=== PATIENT | male | born 1955 | race Caucasian/White ===

== ENCOUNTER 2022-11-08 09:23 | Emergency (ER) | payer MEDICARE, BC, SELFPAY ==
[2022-11-08 09:27] VITALS: BP 199/95; PULSE 91; RESP 20; TEMP 36.6; O2SAT 99; BMI 28.2
[2022-11-08] MEDS: lisinopriL 20 MG TABLET PO (10:05)
[2022-11-08 10:13] VITALS: BP 189/94; PULSE 87; RESP 20; TEMP 36.6
--- NOTE | 2022-11-08 12:38 | ED.GENADULT ---
HPI - General Adult General Date Seen: 11/08/22 Chief complaint: High Blood Pressure Stated complaint: elevated blood pressure Time Seen by Provider: 11/08/22 09:38 Source: patient Mode of arrival: ambulatory Limitations: no limitations History of Present Illness HPI narrative: Patient is a 67-year-old male who presents with concerns of elevated blood pressure. He says he has a history of hypertension but about 6 months ago he was having problems with low blood pressures and passing out so his blood pressure medicines were discontinued. Yesterday he checked his blood pressure at home and it was over 200 systolic. He re checked it this morning and it was still high so he comes in wanting to restart blood pressure medicines. He denies any symptoms at all, no headache, chest pain, difficulty breathing, neurologic complaints. He notes a history of alcohol abuse, had been sober until last week when he had a 3 day binge. He says he is sober again, he has been through treatment at [facility] and has a sponsor there as well as goes to AA meetings. He declines the need for additional help along those lines. He believes he used to take lisinopril and Lasix for his blood pressure. He believes his previous dose of lisinopril was 20 mg. Related Data Home Medications Medication Instructions Recorded Confirmed atorvastatin 20 mg tablet 20 mg PO DAILY 11/08/22 11/08/22 duloxetine 30 mg capsule,delayed 30 mg PO DAILY 11/08/22 11/08/22 release Previous Rx's Medication Instructions Recorded lisinopril 20 mg tablet 20 mg PO DAILY #30 tabs 11/08/22 Allergies Allergy/AdvReac Type Severity Reaction Status Date / Time No Known Drug Allergies Allergy Verified 11/08/22 09:32 Review of Systems Status of ROS: Reports: 6 or more systems reviewed and unremarkable except as noted in History and below PFSH PFSH Social History Smoking Status: Former smoker Do you use any of these nicotine containing products: None Second hand tobacco smoke exposure: No How often do you have a drink containing alcohol: monthly or less AUDIT-C Alcohol total score: 1 Non-prescribed substance use: denies use Exam Narrative: Exam Narrative: Vital signs as noted above. In general, an alert, well-appearing patient. Head: Normocephalic, atraumatic. Eyes: Pupils are equal reactive. Extraocular movements are full. Conjunctivae are normal. ENT: Mucous membranes are moist. Throat is normal. Neck: Supple without lymphadenopathy. Heart: Regular rate and rhythm. No murmur or rub. Lungs: Clear bilaterally. No increased work of breathing, crackles or wheezes. Abdomen: Soft and nontender. No organomegaly. Extremities: Well perfused. No edema. No calf tenderness. Pulses intact. Neurologic: Patient is alert and oriented to person and place. Speech is fluent. Face is symmetric. Moves all extremities equally. Affect: Normal. Skin: Warm and dry. Well perfused. Const: Vital Signs, click to edit/add: Vital Signs - 24 hr 11/08/22 09:27 11/08/22 10:13 Temperature 97.9 F 97.9 F Pulse Rate [Pulse Oximeter] 91 87 Respiratory Rate 20 20 Blood Pressure [Ri ght Upper Arm] 199/95 H 189/94 H Pulse Oximetry 99 Documenting provider has reviewed patient's vital signs: yes Course Course Hospital Course: He was hopeful to get back on his blood pressure medicine as quickly as possible so I did give him a dose of lisinopril here. I am going to give him a prescription for lisinopril and start him on that, have him follow up with primary care, he sees Dr. Winchester, who will assess how he is responding to lisinopril. If needed, Lasix him be added back in as well. However, discussed with him that since he was having some difficulty with low blood pressures, I would like to see how he is doing with 1 medicine before restarting 2. Given that he is completely asymptomatic, I do not think additional workup is needed for his hypertension. Primary care follow-up in 1-2 weeks for re-evaluation. Vital Signs Vital signs: Initial Vital Signs Temperature 97.9 F 11/08/22 09:27 Temperature Source Temporal Artery Scan 11/08/22 09:27 Pulse Rate 91 11/08/22 09:27 Respiratory Rate 20 11/08/22 09:27 Blood Pressure 199/95 H 11/08/22 09:27 Blood Pressure Mean 129 11/08/22 09:27 Blood Pressure Position Sitting 11/08/22 09:27 Pulse Oximetry 99 11/08/22 09:27 Vital Signs Temperature 97.9 F 11/08/22 09:27 Pulse Rate 91 11/08/22 09:27 Respiratory Rate 20 11/08/22 09:27 Blood Pressure 199/95 H 11/08/22 09:27 Pulse Oximetry 99 11/08/22 09:27 Temperature 97.9 F 11/08/22 10:13 Pulse Rate 87 11/08/22 10:13 Respiratory Rate 20 11/08/22 10:13 Blood Pressure 189/94 H 11/08/22 10:13 Pulse Oximetry 99 11/08/22 09:27 Discharge Plan Discharge Clinical Impression: Hypertension Patient Disposition: Home, Self-Care Condition: Stable Instructions: Hypertension (ED) Additional Instructions: Lisinopril as prescribed. Follow up with Dr. Winchester in the next couple of weeks to see how your blood pressure is doing and at further medication as needed. If you have any severe symptoms in the interim such as chest pain, lightheadedness, syncope, shortness of breath, return to the emergency department Prescriptions: New lisinopril 20 mg tablet 20 mg PO DAILY Qty: 30 2RF No Action atorvastatin 20 mg tablet 20 mg PO DAILY duloxetine 30 mg capsule,delayed release(DR/EC) 30 mg PO DAILY Follow Up/Referrals: Gerardo Winchester MD [Primary Care Provider] - Stand Alone Forms: [employer] Info Instructions
== END 2022-11-08 10:15 | disposition home or self-care (01) ==
LOC: ED 10:04
PROVIDERS: Emergency Provider Emergency Medicine; PCP Surgery
DX: I10 Essential (primary) hypertension (principal)
CPT/HCPCS: 99283; A9270

== ENCOUNTER 2023-01-08 09:56 | Outpatient (CLI) | payer MEDICARE, BC, SELFPAY ==
--- NOTE | 2023-01-08 10:15 | CRLHL7_ITS ---
For Patients: As a result of the Century Cures Act, medical imaging exams and procedure reports are released immediately into your electronic medical record. You may view this report before your referring provider. If you have questions, please contact your health care provider. INDICATION: Excessive gas. TECHNIQUE: Single and double contrast esophagram/upper GI. FINDINGS: Very small sliding-type esophageal hiatal hernia. Minimal reflux was elicited with the patient in the recumbent and right lateral decubitus positions predominantly with Valsalva maneuvers. No stricture, mass, or obstruction. No evidence for esophageal dysmotility. The stomach and duodenum are within normal limits. The proximal jejunum is unremarkable. These findings were discussed briefly with the patient. 3 minutes 29 seconds fluoroscopy time utilized. IMPRESSION : Very small sliding-type esophageal hiatal hernia. Minimal reflux in the recumbent/right lateral decubitus position fairly quickly cleared with a dry swallow. No evidence for esophagitis. No gastric or duodenal ulcer is identified. Dictated by Arvind Hong MD @ 01/08/2023 11:45:33 AM (Electronically Signed)
== END 2023-01-08 09:57 | disposition home or self-care (01) ==
LOC: RAD 09:57
PROVIDERS: PCP Family Medicine; Visit Provider Family Medicine
DX: R14.3 Flatulence (principal); K44.9 Diaphragmatic hernia without obstruction or gangrene
CPT/HCPCS: 74246

== ENCOUNTER 2023-07-17 15:40 | Emergency (ER) | payer MEDICARE, BC, SELFPAY ==
[2023-07-17 15:49] VITALS: BP 128/74; PULSE 90; RESP 20; TEMP 36.6; O2SAT 98; BMI 28.1
--- NOTE | 2023-07-17 16:37 | CRLHL7_ITS ---
For Patients: As a result of the Century Cures Act, medical imaging exams and procedure reports are released immediately into your electronic medical record. You may view this report before your referring provider. If you have questions, please contact your health care provider. INDICATION: Hiatal hernia. TECHNIQUE: CT chest, abdomen and pelvis acquired with IV contrast. COMPARISON: None. FINDINGS: CHEST: Cardiovascular structures: Heart size is normal. Coronary artery calcifications. Thoracic aorta and main pulmonary artery are normal in caliber. Mediastinum and sander: Tiny hiatal hernia. No mass or adenopathy. Lungs and pleura: Lungs and pleural spaces are clear. No suspicious nodules, infiltrates, or effusions. Chest wall and axilla: No mass or adenopathy. Bones: No suspicious bone lesions. Unremarkable for age. ABDOMEN AND PELVIS: Liver: Unremarkable. Gallbladder and bile ducts: Unremarkable. Pancreas: Unremarkable. Spleen: Unremarkable. Adrenal glands: Unremarkable. Kidneys: Unremarkable. GI tract: Tiny hiatal hernia. Some circumferential esophageal thickening. Mild colonic stool burden colonic diverticulosis without diverticulitis. No bowel obstruction. Vascular structures: Moderate aortoiliac arterial calcifications. Lymph nodes: Unremarkable. Miscellaneous: Tiny fat containing umbilical hernia. Tiny left fat containing inguinal hernia. No free air or significant free fluid. Pelvic Organs: Mildly distended bladder is circumferential wall thickening. Few dystrophic prostatic calcifications. Bones: No suspicious bone lesions. Unremarkable for age. IMPRESSION: Tiny hiatal hernia. Some circumferential esophageal thickening. Nonspecific, but correlate for esophagitis. Consider endoscopy if medically necessary. Coronary artery calcifications. Moderate colonic stool burden. Colonic diverticulosis without diverticulitis. No acute intrathoracic or intra-abdominal/pelvic abnormality. Please note that all CT scans at this facility use dose modulation, iterative reconstruction, and/or weight-based dosing when appropriate to reduce radiation dose to as low as reasonably achievable. Dictated by Ronak Philip MD @ 07/17/2023 6:27:32 PM (Electronically Signed)
[2023-07-17] MEDS: SUCRALFATE 1 GM TABLET PO (16:52)
[2023-07-17] MEDS: MAG HYDROX/ALUMINUM HYD/SIMETH 30 ML ORAL.SUSP 15 ML PO (16:52)
[2023-07-17] MEDS: 0.9 % SODIUM CHLORIDE 1000 ml 1,000 ML IV (17:00)
[2023-07-17 17:15] LABS: Creatinine, Point-of-Care* 1.5 mg/dl (0.6-1.3)
[2023-07-17 17:20] LABS: Lactate* 1.4 mmol/L (0.5-1.9)
[2023-07-17 17:31] LABS: Basophils Absolute Auto 0.05 K/uL (0.00-0.30); Basophils Percent Auto 0.6 % (0.0-3.0); Eosinophils Percent Auto 1.2 % (0.0-7.0); Hematocrit 39.7 % (37.0-53.0); Hemoglobin* 13.3 gm/dL (13.5-17.5); Immature Granulocytes Abs Auto 0.07 K/uL (0.00-0.30); Immature Granulocytes Pct Auto 0.8 %; Lymphocytes Percent Auto 18.5 % (20-44); Mean Corpuscular HGB Conc 34 gm/dL (32-36); Mean Corpuscular Hemoglobin 30 pg (26-34); Mean Corpuscular Volume 90 fL (80-100); Monocytes Percent Auto 7.6 % (0.0-11.0); Neutrophils Absolute Auto 5.96 K/uL (1.7-7.0); Neutrophils Percent Auto 71.3 % (42.0-72.0); Platelet Count* 283 K/uL (140-440); RDW Coefficient of Variation % 12.2 % (11.5-15.5); White Blood Count* 8.37 K/uL (4.50-11.00)
[2023-07-17 17:39] LABS: Albumin* 3.9 g/dL (3.3-5.0); Chloride* 93 mmol/L (96-114); Sodium* 137 mmol/L (135-149)
[2023-07-17 17:41] LABS: Anion Gap 14 mEq/L (7-15); Aspartate Amino Transferase* 34 U/L (12-35); Bilirubin Total* 0.5 mg/dL (0.1-1.5); Carbon Dioxide* 30 mmol/L (20-32); Creatinine* 1.3 mg/dL (0.5-1.5); Estimated Glomerular Filt Rate 59 ml/min
[2023-07-17 17:42] LABS: Alanine Aminotransferase* 23 U/L (4-50); Alkaline Phosphatase* 63 U/L (40-150); Blood Urea Nitrogen* 43 mg/dL (7-30); Calcium* 9.8 mg/dL (8.4-10.6); Glucose* 118 mg/dL (60-115); Lipase* 124 U/L (23-300); Slide Review Reflex No
[2023-07-17 18:02] LABS: Potassium* 2.7 mmol/L (3.6-5.1)
[2023-07-17 18:07] VITALS: BP 138/91; PULSE 76; RESP 16; O2SAT 98
[2023-07-17 19:00] VITALS: BP 143/53; PULSE 70
--- NOTE | 2023-07-17 19:12 | ED_ITS ---
HPI - General Adult General Date Seen: 07/17/23 Chief complaint: Abdominal Pain Stated complaint: Hiatal hernia Time Seen by Provider: 07/17/23 16:10 History of Present Illness HPI narrative: This is a very pleasant 68-year-old gentleman presenting to the ER today with concern for epigastric discomfort and chest discomfort associated with swallowing ongoing for the past 3 days. He says he has a history of a hiatal hernia. This was apparently diagnosed based on a barium swallow or some sort of x-rays about 8 months ago through his GI office. He has yet to pursue any treatment for diarrhea or any surgical referral. He is not currently on any PPIs or anti acid medications. Does not typically have lot of symptoms with his hiatal hernia. He says since Friday, 3 days ago he has been having a lot of discomfort. It is triggered when every tries to swallow anything. He is able swallow liquids but it hurts. He has a lot of pain when he swallows solids. He is able to swallow and is not vomiting. He does not think there is anything stuck in his esop hagus. He does recall any food bolus being stuck. He has been having so much pain that he has not been wanting to eat or drink. He has been trying to drink enough fluids to stay hydrated but not eating very much. Bowel movements have been less than normal but otherwise brown. No black or bloody stools. No fever. No trouble breathing. He has been feeling a bit weak and dizzy. No other chest pain. When he is not swallowing he is really not having too much pain. He hurts mostly right after he tries to swallow food. He is not having any pain in his throat or in his neck. The pain is all lower in the prasanna xiphoid region. He called his triage clinic at [facility] and I told him to come here to the ER. Records through [facility] Care everywhere: Medications Atorvastatin Vitamin D Prozac Vitamin-C/iron Lisinopril Multi-vitamin Most recent CBC was in January. WBC 7.3, hemoglobin 11.8, platelet count 270 Prior to that he had had a CBC in November 2021, essentially unchanged. He has had stable anemia with hemoglobin between 11.5 and 13 for the past 3 years. Most recent BMP showed creatinine of 1.54 on 01/15. Sodium 143, potassium 4.2. Bicarb 27 According to records from 01/13/2023, his doctor's notes indicate- Your upper gastrointestinal x-ray shows a small hiatal hernia. ?You can try eating smaller portions for each meal and OTC acid or gas reducers. ?Follow up to discuss further if this doesn't help. Ari Norris ?Shirley..... 01/13/2023? Related Data Home Medications Medication Instructions Recorded Confirmed atorvastatin 20 mg tablet 20 mg PO DAILY 11/08/22 11/08/22 duloxetine 30 mg capsule,delayed 30 mg PO DAILY 11/08/22 11/08/22 release Previous Rx's Medication Instructions Recorded lisinopril 20 mg tablet 20 mg PO DAILY #30 tabs 11/08/22 omeprazole 40 mg capsule,delayed 40 mg PO DAILY #30 caps 07/17/23 release potassium chloride 20 mEq/15 mL 20 meq (15 mL) PO DAILY 7 days 07/17/23 oral liquid #150 mL sucralfate 100 mg/mL oral 1 g (10 mL) PO BID #200 mL 07/17/23 suspension (Carafate) Allergies Allergy/AdvReac Type Severity Reaction Status Date / Time No Known Drug Allergies Allergy Verified 07/17/23 17:39 PFSH PFSH Social History Smoking Status: Former smoker Do you use any of these nicotine containing products: None Second hand tobacco smoke exposure: No How often do you have a drink containing alcohol: monthly or less How many standard drinks containing alcohol do you have on a typical day: 1 or 2 AUDIT-C Alcohol total score: 1 Non-prescribed substance use: denies use service: No Exam Narrative: Exam Narrative: Constitutional: Appears well-developed and well-nourished. Alert. Conversant and detailed historian. Non toxic. HENT: Head: Atraumatic. Nose: Nose normal. Mouth/Throat: Oral mucosa is clear and moist. no trismus. Pharynx normal. Tonsils symmetric. No tonsillar enlargement, erythema, or exudate. Eyes: Conjunctivae normal. EOM normal. Pupils equal, round, and reactive to light. No scleral icterus. Neck: Normal range of motion. Neck supple. No tracheal deviation present. Cardiovascular: Normal rate, regular rhythm. No gallop. No friction rub. No murmur heard. Symmetric radial artery pulses Pulmonary/Chest: Effort normal. No stridor. No respiratory distress. No wheezes. No rales. No rhonchi . No tenderness. Abdominal: Soft. Bowel sounds normal. No distension. No mass. No tenderness. No rebound. No guarding. No HSM. No Welsh sign. Musculoskeletal: RUE: Normal range of motion. No tenderness. No deformity LUE: Normal range of motion. No tenderness. No deformity RLE: Normal range of motion. No edema. No tenderness. No deformity LLE: Normal range of motion. No edema. No tenderness. No deformity Lymph: No cervical adenopathy. Neurological: Alert and oriented to person, place, and time. Normal strength. CN II-VII intact. No sensory deficit. GCS eye subscore is 4. GCS verbal subscore is 5. GCS motor subscore is 6. Normal coordination Skin: Skin is warm and dry. No rash noted. No pallor. Normal capillary refill. Psychiatric: Normal mood. Normal affect. Const: Vital Signs, click to edit/add: Vital Signs - 24 hr 07/17/23 15:49 07/17/23 18:07 07/17/23 19:00 Temperature 97.8 F Pulse Rate [Pulse Oximeter] 90 76 70 Respiratory Rate 20 16 Blood Pressure [Le ft Upper Arm] 128/74 138/91 H 143/53 H Pulse Oximetry 98 98 Oxygen Delivery Me thod Room Air Room Air 07/17/23 19:23 Temperature Pulse Rate [Pulse Oximeter] Respiratory Rate Blood Pressure [Le ft Upper Arm] Pulse Oximetry 95 Oxygen Delivery Me thod Room Air Course Vital Signs Vital signs: Initial Vital Signs Temperature 97.8 F 07/17/23 15:49 Temperature Source Temporal Artery Scan 07/17/23 15:49 Pulse Rate 90 07/17/23 15:49 Pulse Rhythm Regular 07/17/23 15:49 Respiratory Rate 20 07/17/23 15:49 Blood Pressure 128/74 07/17/23 15:49 Blood Pressure Mean 92 07/17/23 15:49 Blood Pressure Position Supine 07/17/23 15:49 Pulse Oximetry 98 07/17/23 15:49 Oxygen Delivery Method Room Air 07/17/23 15:49 Vital Signs Temperature 97.8 F 07/17/23 15:49 Pulse Rate 90 07/17/23 15:49 Respiratory Rate 20 11/02/23 15:49 Blood Pressure 128/74 07/17/23 15:49 Pulse Oximetry 98 07/17/23 15:49 Oxygen Delivery Method Room Air 07/17/23 15:49 Temperature 97.8 F 07/17/23 15:49 Pulse Rate 70 07/17/23 19:00 Respiratory Rate 16 07/17/23 18:07 Blood Pressure 143/53 H 07/17/23 19:00 Pulse Oximetry 95 07/17/23 19:23 Oxygen Delivery Method Room Air 07/17/23 19:23 Medical Decision Making MDM Narrative Medical decision making narrative: This is a very pleasant 68-year-old gentleman presenting to the ER today with a 3 day history of teres I fried pain associated with swallowing. He has had so much pain with swelling that he has really had not been eating any solids for the past 3 days but has been working hard to stay hydrated with liquids. He reports that he has a known history of hiatal hernia (diagnosed on upper GI last spring) but is not on any long-term PPI. No previous diagnosis of esophagitis or ulcers. He does not have any history of recent black or bloody stools. He is not anemic today. In fact hemoglobin is slightly above baseline which I think probably reflects dehydration and hemoconcentration. He received a L of IV saline here in the ER. Metabolic profile shows creatinine of 1.3 which is actually at his baseline. Elevated BUN of 43 would suggest prerenal azotemia, again likely due to dehydration from decreased p.o. intake. He does have hypokalemia. He says he is not feeling any weakness or numbness. EKG shows no prolonged QT, U waves, or other definite changes associated with low potassium. He received IV potassium chloride here in the ER and is tolerating p.o.. He thinks he will be able to supplement with oral potassium and dietary supplements at home. He will recheck with his primary office tomorrow or return to the ER tomorrow for repeat potassium measurement to make sure he is not drifting lower. LFTs and lipase are normal. CT scan of his chest abdomen pelvis is obtained to look for alternative explanations for his. Xiphoid discomfort. CT scan does s how coronary artery calcifications but he is not having chest pain that would be suggestive for ACS. EKG is nonischemic. I do not think he needs to be admitted for coronary occlusion. CT does show circumferential esophageal thickening which could be consistent with esophagitis which does clinically correlate with symptoms. Will start the patient on PPI, recommend Carafate and Maalox, soft foods, decreased as city in his diet. I expressed my concern that the patient has had very decreased oral intake over the past couple of days leading to his low potassium. Offered admission for potassium repletion and monitoring. He did quite well with p.o. challenge and feels better after meds given here in the ER. He feels comfortable discharging to home and would prefer discharge to admission. He will follow-up with primary care for tomorrow for repeat hemoglobin, repeat potassium check, and to arrange outpatient endoscopy. Precautions for return to the ER reviewed. Lab Data Labs: Lab Results 07/17/23 07/17/23 Range/Units 17:00 17:13 WBC 8.37 (4.50-11.00) K/uL RBC 4.40 (4.30-5.90) m/uL Hgb 13.3 L (13.5-17.5) gm/dL Hct 39.7 (37.0-53.0) % MCV 90 (80-100) fL MCH 30 (26-34) pg MCHC 34 (32-36) gm/dL RDW Coeff of Lorna 12.2 (11.5-15.5) % Plt Count 283 (140-440) K/uL Neut % (Auto) 71.3 (42.0-72.0) % Lymph % (Auto) 18.5 L (20-44) % [place] % (Auto) 7.6 (0.0-11.0) % Eos % (Auto) 1.2 (0.0-7.0) % Baso % (Auto) 0.6 (0.0-3.0) % Neut # (Auto) 5.96 (1.7-7.0) K/uL Lymph # (Auto) 1.50 (0.90-2.90) K/uL [place] # (Auto) 0.60 (0.00-0.90) K/UL Eos # (Auto) 0.10 (0.00-0.50) K/uL Baso # (Auto) 0.05 (0.00-0.30) K/uL Abs Immat Gran (auto) 0.07 (0.00-0.30) K/uL Imm/Tot Granulo (auto) 0.8 % Sodium 137 (135-149) mmol/L Potassium 2.7 L* (3.6-5.1) mmol/L Chloride 93 L (96-114) mmol/L Carbon Dioxide 30 (20-32) mmol/L Anion Gap 14 (7-15) mEq/L BUN 43 H (7-30) mg/dL Creatinine 1.3 (0.5-1.5) mg/dL Estimated Creat Clear 48.40 Estimated GFR 59 ml/min Glucose 118 H (60-115) mg/dL Lactate 1.4 (0.5-1.9) mmol/L Calcium 9.8 (8.4-10.6) mg/dL Total Bilirubin 0.5 (0.1-1.5) mg/dL AST 34 (12-35) U/L ALT 23 (4-50) U/L Alkaline Phosphatase 63 (40-150) U/L Total Protein 7.0 (6.0-8.3) g/dL Albumin 3.9 (3.3-5.0) g/dL Lipase 124 (23-300) U/L POC Creatinine 1.5 H (0.6-1.3) mg/dl Imaging Data CT scan - abdomen: Attestation: I have reviewed the pertinent imaging results. Radiologist's impression: IMPRESSION: Tiny hiatal hernia. Some circumferential esophageal thickening. Nonspecific, but correlate for esophagitis. Consider endoscopy if medically necessary. Coronary artery calcifications. Moderate colonic stool burden. Colonic diverticulosis without diverticulitis. No acute intrathoracic or intra-abdominal/pelvic abnormality. ECG Data Attestation: I personally reviewed and interpreted this ECG as follows: Interpretation: Normal sinus rhythm rate 80 DC 150 a QRS axis normal axis ST segment/T wave: No ST segment elevation or depression,. No U waves QTc: 459 Discharge Plan Discharge Clinical Impression: Esophagitis, Acute hypokalemia Patient Disposition: Home, Self-Care Condition: Stable Instructions: Hypokalemia (ED), Esophagitis (ED) Additional Instructions: Please start an anti acid medicine every day to reduce stomach acid and acid mccurdy in your esophagus. Use Carafate and Maalox as needed to help manage your symptoms. Please take potassium supplements and potassium rich foods. Try to stick to a liquid and soft food diet for the next several days. Be sure to follow-up with your regular doctor or come back to the ER tomorrow for repeat labs and potassium recheck. You should also follow-up with your doctor to arrange an outpatient endoscopy to get a camera for further evaluation of your esophagus. If you have any worsening symptoms especially bloody vomiting, bloody or black stool, inability to stay hydrated or eat food at home, worsening pain, fever, or any problems, return to the ER immediately. Prescriptions: New omeprazole 40 mg capsule,delayed release(DR/EC) 40 mg PO DAILY Qty: 30 2RF sucralfate [Carafate] 100 mg/mL suspension 1 g PO BID Qty: 200 2RF potassium chloride 20 mEq/15 mL liquid 20 meq PO DAILY 7 Days Qty: 150 0RF No Action atorvastatin 20 mg tablet 20 mg PO DAILY duloxetine 30 mg capsule,delayed release(DR/EC) 30 mg PO DAILY lisinopril 20 mg tablet 20 mg PO DAILY Qty: 30 2RF Follow Up/Referrals: Ari Norris MD [Primary Care Provider] - Stand Alone Forms: [employer] Info Instructions
[2023-07-17] MEDS: POTASSIUM CHLORIDE 10 MEQ/100 ML PIGGYBACK 100 MEQ IVPB (19:22)
[2023-07-17 19:23] VITALS: O2SAT 95
--- NOTE | 2023-07-18 08:33 | ED.NURSE ---
Received a call from Radha at [facility] pharmacy regarding liquid Potassium prescription from pt's visit yesterday. Radha states that the quantity of the liquid should be written for 105mL instead of 150mL. [facility] also does not have liquid potassium in stock so it would have to be switched to another pharmacy. Or if possible, could the patient be switched to PO tablets instead. Spoke with Dr. Hanson, as Dr. Wilder who saw the patient is not in the ER today. Dr. Hanson stated ok to change prescription to Potassium 20mEq tablets PO, take 1 tablet by mouth once daily for 7 days. Radha notified of this change. Left message on pharmacy phone with instructions to call back with any questions.
== END 2023-07-17 20:49 | disposition home or self-care (01) ==
PROVIDERS: Emergency Provider Emergency Medicine; PCP Family Medicine
DX: K20.90 Esophagitis, unspecified without bleeding (principal); E87.6 Hypokalemia
CPT/HCPCS: 36415; 71260; 74177; 80053; 82565; 83605; 83690; 85025; 93005; 96365; 99284; 99285; A9270; J3480; J7030; Q9967

== ENCOUNTER 2023-09-03 16:36 | Outpatient (CLI) | payer MEDICARE, BC, SELFPAY | END 2023-09-03 16:37 | disposition home or self-care (01) | LOC: AMB 09-11 16:40 | PROVIDERS: PCP Family Medicine; Visit Provider Family Medicine | DX: M54.9 Dorsalgia, unspecified (principal); R53.1 Weakness | CPT/HCPCS: A0998 ==

== ENCOUNTER 2024-10-05 16:15 | Outpatient (CLI) | payer MEDICARE, BC, SELFPAY | END 2024-10-05 16:16 | disposition home or self-care (01) | LOC: AMB 10-25 15:39 | PROVIDERS: PCP Family Medicine; Visit Provider Family Medicine | DX: I46.9 Cardiac arrest, cause unspecified (principal) | CPT/HCPCS: A0429 ==